=== PATIENT | male | born 1995 | race African-American/Black ===

== ENCOUNTER → 2017-10-08 | Outpatient (REF) | payer OTHER | LOC: M SMT 12:58 | DX: Z41.2 Encounter for routine and ritual male circumcision (principal) ==

== ENCOUNTER 2017-10-29 12:19 | Emergency (ER) | payer OTHER | END 2017-10-29 14:25 | disposition home or self-care (01) | LOC: M ED 12:19 | DX: S40.012A Contusion of left shoulder, initial encounter (principal); V49.49XA Driver injured in collision with other motor vehicles in traffic accident, initial encounter; Y92.410 Unspecified street and highway as the place of occurrence of the external cause | CPT/HCPCS: 73000 ==